=== PATIENT | female | born 1960 ===

== ENCOUNTER 2017-09-25 09:31 | Emergency (ER) | payer OTHER ==
[2017-09-25 10:14] VITALS: BP 135/87
--- NOTE | 2017-09-25 10:27 | UC ---
Hand/Wrist HPI - HPI Summary HPI Summary: Puncture wound to the palmar surface of the left hand. Puncture wound from a torn on a thorn Apple tree to the left index finger at the MCP joint. Patient has pain prompting swelling at the MCP joint with decreased range of motion. Neuro motor and circulation intact distally - History Of Current Complaint Chief Complaint: UCUpperExtremity Stated Complaint: (L) POINTER FINGER COMPLAINT Time Seen by Provider: 09/25/17 10:04 Hx Obtained From: Patient ?: No Mechanism Of Injury: puncture wound Onset/Duration: Sudden Onset, Lasting Days - 1 Severity Initially: Mild Severity Currently: Mild Pain Intensity: 2 Pain Scale Used: 0-10 Numeric Character Of Pain: Aching, Stiffness Aggravating Factor(s): Movement Alleviating Factor(s): Nothing Associated Signs And Symptoms: Positive: Swelling, Redness Related History: Dominant Hand Right - Allergies/Home Medications Allergies/Adverse Reactions: Allergies Allergy/AdvReac Type Severity Reaction Status Date / Time Penicillins Allergy Unknown Verified 09/25/17 10:46 Reaction Details Sulfa (Sulfonamide Allergy Unknown Verified 09/25/17 10:46 Antibiotics) Reaction Details Home Medications: Home Medications Ibuprofen 600 mg PO Q8H 09/25/17 [History Confirmed 09/25/17] Levothyroxine TAB* [Synthorid 112 MCG TAB*] 112 mcg PO 0800 09/25/17 [History Confirmed 09/25/17] dilTIAZem HCl [Cartia Xt] 180 mg PO DAILY 09/25/17 [History Confirmed 09/25/17] PMH/Surg Hx/FS Hx/Imm Hx Previously Healthy: No Endocrine History: Hypothyroidism - Puncture wound Cardiovascular History: Other Other Cardiovascular History: palpitations - Surgical History Surgical History: Yes Surgery Procedure, Year, and Place: LEFT KNEE ARTHROSCOPY. RIGHT THUMB TRIGGER. TONSILLECTOMY - Family History Known Family History: Positive: None - Social History Occupation: Employed Full-time - high school counselor Lives: With Family Alcohol Use: Daily Substance Use Type: None Smoking Status (MU): Never Smoked Tobacco Review of Systems Constitutional: Negative Skin: Other - Puncture wound to the palmar surface of the left index finger near the MCP joint Eyes: Negative ENT: Negative Respiratory: Negative Cardiovascular: Negative Gastrointestinal: Negative Genitourinary: Negative Motor: Decreased ROM Neurovascular: Negative Musculoskeletal: Arthralgia - Left index finger Neurological: Negative Psychological: Negative Is Patient Immunocompromised?: No All Other Systems Reviewed And Are Negative: Yes Physical Exam Triage Information Reviewed: Yes Appearance: Well-Appearing, No Pain Distress, Well-Nourished Vital Signs: Initial Vital Signs Temp 97.4 F 09/25/17 10:05 Pulse 68 09/25/17 10:05 Resp 18 09/25/17 10:05 BP 135/87 09/25/17 10:05 Pulse Ox 97 09/25/17 10:05 Vital Signs Reviewed: Yes Eye Exam: Normal Eyes: Positive: Conjunctiva Clear ENT Exam: Normal ENT: Positive: Normal ENT inspection, Hearing grossly normal. Negative: Trismus , Muffled voice, Hoarse voice Dental Exam: Normal Neck exam: Normal Neck: Positive: Supple, Nontender, No Lymphadenopathy Respiratory Exam: Normal Respiratory: Positive: Chest non-tender, Lungs clear, Normal breath sounds, No respiratory distress, No accessory muscle use Cardiovascular Exam: Normal Cardiovascular: Positive: RRR, No Murmur, Pulses Normal, Brisk Capillary Refill Musculoskeletal Exam: Other Musculoskeletal: Positive: Strength Limited @ - left index finger light, ROM Limited @ - left index finger, Edema @ - left index finger Neurological Exam: Normal Neurological: Positive: Alert, Muscle Tone Normal Psychological Exam: Normal Skin: Positive: Other - puncture wound as described Diagnostics - Radiology No standard instances Xray Interpretation: No Acute Changes Radiology Interpretation Completed By: ED Physician, Radiologist Hand/Wrist Course/Dx - Course Course Of Treatment: Tetanus updated, doxycycline started, finger splinted, Tylenol or ibuprofen for pain. Warm soaks 3-4 times a day. Follow-up with Dr. Lacey in 2-3 days for recheck or sooner if finger worsens in any way - Differential Dx/Diagnosis Provider Diagnoses: Puncture Wound left Index finger, up date tetanus Discharge - Sign-Out/Discharge Documenting (check all that apply): Discharge/Admit/Transfer - Discharge Plan Condition: Stable Disposition: HOME Prescriptions: DOXYcycline CAP(*) [DOXYcycline 100MG CAP(*)] 100 mg PO BID #20 cap Patient Education Materials: Ibuprofen (By mouth), Puncture Wound (ED), Wound Infection (ED), Warm Compress or Soak (ED) Referrals: Tania Lacey MD [Medical Doctor] - 3 Days - Billing Disposition and Condition Condition: STABLE Disposition: HOME
[2017-09-25] MEDS ORDERED: Tetan/Diph/Pertus SYR(Tdap)* 0.5 ML SYR(BOOSTRIX) use SYR IM ONE (10:34)
--- NOTE | 2017-09-25 10:35 | RAD ---
HISTORY: Foreign body MCP joint, penetrating trauma COMPARISONS: None VIEWS: 3, Frontal, lateral, and oblique views of the second digit of the left hand FINDINGS: BONE DENSITY: Normal. BONES: There is no displaced fracture. JOINTS: There is osteoarthritis of the distal interphalangeal joint. ALIGNMENT: There is no dislocation. SOFT TISSUES: Unremarkable. OTHER FINDINGS: There is no radiopaque foreign body.. IMPRESSION: OSTEOARTHRITIS. NO RADIOPAQUE FOREIGN BODY. NO ACUTE OSSEOUS INJURY. IF SYMPTOMS PERSIST, RECOMMEND REPEAT IMAGING.
== END 2017-09-25 11:36 | disposition home or self-care (01) ==
LOC: UCCORT 09:31
DX: S61.231A Puncture wound without foreign body of left index finger without damage to nail, initial encounter (principal); W26.8XXA Contact with other sharp object(s), not elsewhere classified, initial encounter; Y92.9 Unspecified place or not applicable; Z23 Encounter for immunization; Z88.0 Allergy status to penicillin; Z88.2 Allergy status to sulfonamides
CPT/HCPCS: 73140; 90471; 90715; 99212; G0463